=== PATIENT | male | born 1985 | race American Indian/Alaskan Native ===

== ENCOUNTER 2018-01-06 12:57 | Emergency (ER) | payer OTHER ==
--- NOTE | 2018-01-06 15:52 | Emergency Department Report ---
Vomiting/Diarrhea - [facility] Chief Complaint: Nausea/Vomiting/Diarrhea Stated Complaint: FOOD POISONING Time Seen by Provider: 01/06/18 15:09 Severity: mild Nausea/Vomiting Severity: Mild Diarrhea Severity: None Pain Severity: None Symptoms: Yes Able to Tolerate Fluids, Yes Recent Unusual Foods (sonic burger), Yes Family w/ Similar Symptoms, No Watery Diarrhea, No Bloody diarrhea, No Fever , No Recent Untreated Water, No Recent use of Antibiotics, No Contacts w/ Similar Symptoms, No Rash, No Hematuria, No Recent URI Symptoms Other History: This is a 32-year-old male who is here with his 25-year-old female friend complaining of vomiting episodes shortly after eating A Hamburger Earlier Today. Denies all other Symptoms ED Review of Systems ROS: Stated complaint: FOOD POISONING Other details as noted in HPI Constitutional: denies: chills, fever Eyes: denies: eye pain, eye discharge, vision change ENT: denies: ear pain, throat pain Respiratory: denies: cough, shortness of breath, wheezing Cardiovascular: denies: chest pain, palpitations Endocrine: no symptoms reported Gastrointestinal: nausea, vomiting. denies: abdominal pain, diarrhea, constipation, hematemesis Genitourinary: denies: urgency, dysuria Musculoskeletal: denies: back pain, joint swelling, arthralgia Skin: denies: rash, lesions Neurological: denies: headache, weakness, numbness, paresthesias, confusion Psychiatric: denies: anxiety, depression Hematological/Lymphatic: denies: easy bleeding, easy bruising ED Past Medical Hx - Past Medical History Previous Medical History?: No - Surgical History Past Surgical History?: Yes Additional Surgical History: jaw - Social History Smoking Status: Never Smoker Substance Use Type: None - Medications Home Medications: Home Medications Medication Instructions Recorded Confirmed Last Taken Type Cephalexin [Keflex] 500 mg PO Q12HR #14 capsule 02/11/15 Unknown Rx Famotidine [Pepcid] 20 mg PO DAILY #10 tablet 01/06/18 Unknown Rx Ondansetron [Zofran ODT TAB] 8 mg PO BID #10 tab.rapdis 01/06/18 Unknown Rx Vomiting Diarrhea Exam - Exam General: Vital signs noted. No distress. Alert and acting appropriately. HEENT: Yes Moist Mucous Membranes, No Pharyngeal Erythema, No Pharyngeal Exudates, No Rhinorrhea, No Conjuctival Injection, No Frontal Tenderness, No Maxillary Tenderness Neck: No Adenopathy, No Rigidity Lungs: Yes Clear Lung Sounds, Yes Good Air Exchange, No Wheezes, No Stridor, No Cough, No Nasal Flaring, No Retractions, No Use of Accessory Muscles Heart exam: Regular: Yes, Murmur: No, Tachycardia: No Abdomen: Tenderness: No, Peritoneal Signs: No, Distention: No, Hyperactive Bowel sounds: No Skin exam: Rash: No, Edema: No, Normal turgor: Yes Neurologic: Alert and oriented, no deficits. Musculoskeletal: Unremarkable. ED Course Vital Signs 01/06/18 13:09 Temperature 98.6 F Pulse Rate 71 Respiratory 98 H Rate Blood Pressure 134/90 ED Medical Decision Making - Medical Decision Making 32-year-old male presents with acute nausea vomiting from food poisoning ED course: Patient received Pepcid and Zofran in ED There was no episodes of vomiting or diarrhea in the ED. Vital signs are stable patient is in no acute distress Discussed the patient to keep hydrated and increase hydration. I discussed part-time with the patient. I discussed the patient to follow up with primary care physician. Critical care attestation.: If time is entered above; I have spent that time in minutes in the direct care of this critically ill patient, excluding procedure time. ED Disposition Clinical Impression: Food poisoning Qualifiers: Encounter type: initial encounter Injury intent: accidental or unintentional Qualified Code(s): T62.91XA - Toxic effect of unspecified noxious substance eaten as food, accidental (unintentional), initial encounter Disposition: DC-01 TO HOME OR SELFCARE Is pt being admited?: No Does the pt Need Aspirin: No Condition: Stable Instructions: Food Poisoning (ED), Gastroenteritis (ED) Additional Instructions: Make sure to follow up with the primary care physician as discussed. Take all your medications as you've been prescribed. If you have any worsening symptoms or develop new symptoms please return to ED immediately. Prescriptions: Famotidine [Pepcid] 20 mg PO DAILY #10 tablet Ondansetron [Zofran ODT TAB] 8 mg PO BID #10 tab.rapdis Referrals: PRIMARY MD VIC [Primary Care Provider] - 3-5 Days LUCIE LUND MD [Referring] - 3-5 Days [facility] [Outside] - 3-5 Days [facility] [Outside] - 3-5 Days Forms: Work/School Release Form(ED) Time of Disposition: 15:52
[2018-01-06] MEDS: ZOFRAN ODT PO ONE (15:59)
[2018-01-06] MEDS: PEPCID PO ONE (16:00)
[2018-01-06 16:37] VITALS: BP 130/80
== END 2018-01-06 16:36 | disposition home or self-care (01) ==
LOC: ED 12:57
DX: T62.91XA Toxic effect of unspecified noxious substance eaten as food, accidental (unintentional), initial encounter (principal); X58.XXXA Exposure to other specified factors, initial encounter; Y93.89 Activity, other specified; Y99.8 Other external cause status; Y92.89 Other specified places as the place of occurrence of the external cause
CPT/HCPCS: 99282; Q0162

== ENCOUNTER 2018-12-31 09:03 | Emergency (ER) | payer OTHER ==
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
== END 2018-12-31 10:38 | disposition home or self-care (01) ==
LOC: ED 09:03
DX: J02.9 Acute pharyngitis, unspecified (principal)
CPT/HCPCS: 99282

== ENCOUNTER 2019-08-06 10:58 | Emergency (ER) | payer OTHER ==
[2019-08-06 11:18] VITALS: BP 134/96
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
[2019-08-06] MEDS ORDERED: CYCLOBENZAPRINE 10 MG TAB PO ONE (13:13)
[2019-08-06] MEDS ORDERED: IBUPROFEN 800 MG TAB PO ONE (13:13)
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
== END 2019-08-06 14:07 | disposition home or self-care (01) ==
LOC: ED 10:58
DX: S46.912A Strain of unspecified muscle, fascia and tendon at shoulder and upper arm level, left arm, initial encounter (principal); S39.012A Strain of muscle, fascia and tendon of lower back, initial encounter; Z79.899 Other long term (current) drug therapy; V49.49XA Driver injured in collision with other motor vehicles in traffic accident, initial encounter; Y93.89 Activity, other specified; Y92.89 Other specified places as the place of occurrence of the external cause; Y99.8 Other external cause status